=== PATIENT | male | born 1985 | race African-American/Black ===

== ENCOUNTER 2023-11-15 11:08 | Emergency (ER) | payer OTHER, SELFPAY ==
[2023-11-15 11:18] VITALS: BP 149/94; PULSE 93; RESP 18; TEMP 36.4; O2SAT 100; BMI 33.7
--- NOTE | 2023-11-15 11:18 | ED_ITS ---
HPI - Nausea/Vomiting/Diarrhea General Time Seen by Provider: 11:18 Date Seen: 11/15/23 Chief complaint: Nausea/Vomiting Stated complaint: Vomitting, diarrhea, fever, yellow eyes Time Seen by Provider: 11/15/23 11:13 Source: patient, RN notes reviewed and old records reviewed Mode of arrival: ambulatory Limitations: no limitations History of Present Illness HPI Narrative: 38-year-old male who presents today with nausea, vomiting, cough, shortness of breath, diarrhea. This been going on about a week, generally says he feels better but still is having some nausea and vomiting. Denies chest pain, abdominal pain, blood in the stools. Also notes that he has had a sore throat, subjective fever couple days ago but not today. No known ill contacts. Spouse thinks his eyes look yellow. Related Data Previous Rx's ?Medication ?Instructions ?Recorded albuterol sulfate 90 mcg/actuation 2 puff inhalation Q4H PRN 11/15/23 aerosol inhaler shortness of breath or wheezing #8.5 grams ondansetron 4 mg disintegrating 4 mg PO Q6H PRN nausea and 11/15/23 tablet vomiting #20 tabs Allergies Allergy/AdvReac Type Severity Reaction Status Date / Time cats Allergy Mild sneezing Uncoded 11/15/23 11:24 Exam Narrative: Exam Narrative: General: Well-developed and well-nourished, no acute distress Head: Atraumatic and normocephalic Eyes: Pupils are equal reactive, extraocular motions intact, conjunctiva clear ENT: External nose and ears are normal, posterior pharynx without erythema or exudate Neck: No midline cervical tenderness, full spontaneous range of motion the neck, trachea midline, no adenopathy Heart: Regular rate and rhythm no murmurs or thrills Lungs: Expiratory wheezes worse on the right, trace crackles on the right Abdomen: Soft, nontender, nondistended with active bowel sounds Musculoskeletal: No tenderness, deformity, or edema Neurologic: Awake, alert, and oriented x3, no gross focal neurologic deficits, cranial nerves intact as tested Psych: Mood and affect are appropriate Skin: No rashes Const: Vital Signs, click to edit/add: Vital Signs - 24 hr 11/15/23 11:18 11/15/23 13:00 11/15/23 13:08 Temperature 97.6 F Pulse Rate [Pulse Oximeter] 93 99 Respiratory Rate 18 20 20 Blood Pressure [Ri ght Upper Arm] 149/94 H 140/99 H Pulse Oximetry 100 95 Oxygen Delivery Me thod Room Air Room Air Room Air Course Course ED Course: Patient seen examined, reviewed align [employer] and [email or web address] charting systems, most recent visit was May 2021 for possible COVID infection. Patient presents today with nausea, vomiting, diarrhea, cough, hoarse voice, and subjective fever going on for about a week. Generally is feeling better but still is having difficulty keeping any food down. On exam, vital is stable, he does have some wheezes on the right as well some crackles, this likely represents a bronchitis but cannot exclude pneumonia. Spouse also think patient's eyes look yellow although I do not note any scleral icterus. Labs ordered along with chest x- ray, fluids, and Zofran. Patient with poor access to affordable healthcare, smokes marijuana regularly Reevaluation(s) Time of Reevaluation #1: 12:47 Reevaluation #1: Labs ordered and independently interpreted by me with mild leukocytosis, normal basic metabolic panel, normal hepatic panel. Chest x-ray ordered independently interpreted by me negative for acute findings. Lipase is normal. Time of Reevaluation #2: 13:03 Reevaluation #2: Respiratory panel is negative for acute findings, anticipate discharge. Vital Signs Vital signs: Initial Vital Signs Temperature 97.6 F 11/15/23 11:18 Temperature Source Temporal Artery Scan 11/15/23 11:18 Pulse Rate 93 11/15/23 11:18 Respiratory Rate 18 11/15/23 11:18 Blood Pressure 149/94 H 11/15/23 11:18 Blood Pressure Mean 112 H 11/15/23 11:18 Blood Pressure Position Sitting 11/15/23 11:18 Pulse Oximetry 100 11/15/23 11:18 Oxygen Delivery Method Room Air 11/15/23 11:18 Vital Signs Temperature 97.6 F 11/15/23 11:18 Pulse Rate 93 11/15/23 11:18 Respiratory Rate 18 11/15/23 11:18 Blood Pressure 149/94 H 11/15/23 11:18 Pulse Oximetry 100 11/15/23 11:18 Oxygen Delivery Method Room Air 11/15/23 11:18 Temperature 97.6 F 11/15/23 11:18 Pulse Rate 99 11/15/23 13:08 Respiratory Rate 20 11/15/23 13:08 Blood Pressure 140/99 H 11/15/23 13:00 Pulse Oximetry 95 11/15/23 13:08 Oxygen Delivery Method Room Air 11/15/23 13:08 Medications Administered Medications: Discontinued Medications Generic Name Dose Route Start Last Admin Trade Name Alejandro PRN Reason Stop Dose Admin Albuterol/Ipratropium 1 neb 11/15/23 11:40 11/15/23 12:12 Iprat-Albut 0.5-2.5 Mg/3 Ml Neb IH 11/15/23 11:41 1 neb ONCE ONE Administration Sodium Chloride 1,000 mls @ 1,000 mls/hr 11/15/23 11:45 11/15/23 12:13 0.9 % Sodium Chloride 1000 Ml IV 11/15/23 12:44 1,000 mls/hr .Q1H JAIR Administration Ondansetron HCl 4 mg 11/15/23 11:40 11/15/23 12:12 Ondansetron 2 Mg/Ml Inj IVP 11/15/23 11:41 4 mg ONCE ONE Administration MDM - Nausea/Vomiting/Diarrhea Lab Data Labs: Lab Results 11/15/23 Range/Units 12:06 WBC 12.95 H (4.50-11.00) K/uL RBC 5.89 (4.30-5.90) m/uL Hgb 16.2 (13.5-17.5) gm/dL Hct 49.0 (37.0-53.0) % MCV 83 (80-100) fL MCH 28 (26-34) pg MCHC 33 (32-36) gm/dL RDW Coeff of Boogie 12.7 (11.5-15.5) % Plt Count 236 (140-440) K/uL Neut % (Auto) 61.1 (42.0-72.0) % Lymph % (Auto) 23.1 (20-44) % Sierra % (Auto) 14.8 H (0.0-11.0) % Eos % (Auto) 0.3 (0.0-7.0) % Baso % (Auto) 0.5 (0.0-3.0) % Neut # (Auto) 7.90 H (1.7-7.0) K/uL Lymph # (Auto) 3.00 H (0.90-2.90) K/uL Sierra # (Auto) 1.90 H (0.00-0.90) K/UL Eos # (Auto) 0.00 (0.00-0.50) K/uL Baso # (Auto) 0.10 (0.00-0.30) K/uL Abs Immat Gran (auto) 0.00 (0.00-0.30) K/uL Imm/Tot Granulo (auto) 0.2 % Sodium 139 (135-149) mmol/L Potassium 3.8 (3.6-5.1) mmol/L Chloride 101 (96-114) mmol/L Carbon Dioxide 21 (20-32) mmol/L Anion Gap 17 H (7-15) mEq/L BUN 15 (5-24) mg/dL Creatinine 1.4 (0.5-1.5) mg/dL Estimated Creat Clear 72.24 Estimated GFR 66 ml/min Glucose 120 H (60-115) mg/dL Calcium 9.8 (8.4-10.6) mg/dL Magnesium 2.4 (1.5-2.6) mg/dL Total Bilirubin 1.0 (0.1-1.5) mg/dL Direct Bilirubin 0.4 (0.0-0.5) mg/dL AST 28 (12-35) U/L ALT 16 (4-50) U/L Alkaline Phosphatase 98 (40-150) U/L Total Protein 9.8 H (6.0-8.3) g/dL Albumin 5.3 H (3.3-5.0) g/dL Lipase 36 (23-300) U/L SARS-CoV-2 (PCR) Negative SARS-CoV-2 (Negative) Influenza Type A (PCR) Negative PCR FLU A (Negative) Influenza Type B (PCR) Negative PCR FLU B (Negative) RSV (PCR) Negative PCR RSV (Negative) Discharge Plan Discharge Clinical Impression: Acute viral syndrome Patient Disposition: Home, Self-Care Condition: Stable Instructions: Viral Syndrome (ED) Additional Instructions: Take Zofran as needed for nausea vomiting You may take [id number] Imodium as needed for diarrhea Follow-up with primary care in 1 week as needed Discharge Diet: Regular Prescriptions: New albuterol sulfate 90 mcg/actuation HFA aerosol inhaler 2 puff inhalation Q4H PRN (Reason: shortness of breath or wheezing) Qty: 8.5 0RF ondansetron 4 mg tablet,disintegrating 4 mg PO Q6H PRN (Reason: nausea and vomiting) Qty: 20 0RF Follow Up/Referrals: Provider,Not a Local [Primary Care Provider] - Stand Alone Forms: [facility] Info Instructions
--- NOTE | 2023-11-15 11:40 | CRLHL7_ITS ---
For Patients: As a result of the Cures Act, medical imaging exams and procedure reports are released immediately into your electronic medical record. You may view this report before your referring provider. If you have questions, please contact your health care provider. Indication: Fever, cough Technique: PA and lateral views of the chest. Comparison: None. Findings: Normal cardiomediastinal silhouette. No focal consolidation, pleural effusions, or visualized pneumothorax. Impression: No acute cardiopulmonary disease. Dictated by Timoteo Lala MD @ 11/15/2023 1:14:41 PM (Electronically Signed)
[2023-11-15] MEDS: ONDANSETRON 2 MG/ML inj 4 MG IVP (12:12)
[2023-11-15] MEDS: IPRAT-ALBUT 0.5-2.5 MG/3 ML NEB 1 NEB IH (12:12)
[2023-11-15] MEDS: 0.9 % SODIUM CHLORIDE 1000 ml 1,000 ML IV (12:13)
[2023-11-15 12:25] LABS: Basophils Percent Auto 0.5 % (0.0-3.0); Eosinophils Percent Auto 0.3 % (0.0-7.0); Hemoglobin* 16.2 gm/dL (13.5-17.5); Immature Granulocytes Pct Auto 0.2 %; Lymphocytes Percent Auto 23.1 % (20-44); Mean Corpuscular HGB Conc 33 gm/dL (32-36); Mean Corpuscular Hemoglobin 28 pg (26-34); Mean Corpuscular Volume 83 fL (80-100); Monocytes Percent Auto 14.8 % (0.0-11.0); Neutrophils Percent Auto 61.1 % (42.0-72.0); Platelet Count* 236 K/uL (140-440); RDW Coefficient of Variation % 12.7 % (11.5-15.5); Red Blood Count 5.89 m/uL (4.30-5.90); White Blood Count* 12.95 K/uL (4.50-11.00)
[2023-11-15 12:27] LABS: Slide Review Reflex No
[2023-11-15 12:30] LABS: Albumin* 5.3 g/dL (3.3-5.0); Chloride* 101 mmol/L (96-114)
[2023-11-15 12:31] LABS: Sodium* 139 mmol/L (135-149)
[2023-11-15 12:33] LABS: Alkaline Phosphatase* 98 U/L (40-150); Anion Gap 17 mEq/L (7-15); Aspartate Amino Transferase* 28 U/L (12-35); Bilirubin Direct* 0.4 mg/dL (0.0-0.5); Blood Urea Nitrogen* 15 mg/dL (5-24); Carbon Dioxide* 21 mmol/L (20-32); Creatinine* 1.4 mg/dL (0.5-1.5); Est. Creatinine Clearance* 72.24; Estimated Glomerular Filt Rate 66 ml/min; Total Protein* 9.8 g/dL (6.0-8.3)
[2023-11-15 12:34] LABS: Alanine Aminotransferase* 16 U/L (4-50); Calcium* 9.8 mg/dL (8.4-10.6); Glucose* 120 mg/dL (60-115); Lipase* 36 U/L (23-300); Magnesium* 2.4 mg/dL (1.5-2.6)
[2023-11-15 12:37] LABS: Potassium* 3.8 mmol/L (3.6-5.1)
[2023-11-15 12:50] LABS: PCR FLU A Negative PCR FLU A (Negative); PCR FLU B Negative PCR FLU B (Negative); PCR RSV Negative PCR RSV (Negative); SARS PCR* Negative SARS-CoV-2 (Negative)
[2023-11-15 13:00] VITALS: BP 140/99; RESP 20
[2023-11-15 13:08] VITALS: PULSE 99; RESP 20; O2SAT 95
== END 2023-11-15 13:35 | disposition home or self-care (01) ==
PROVIDERS: Emergency Provider Family Medicine
DX: B34.9 Viral infection, unspecified (principal)
CPT/HCPCS: 36415; 71046; 80048; 80076; 83690; 83735; 85025; 87631; 94640; 96374; 99282; 99283; 99284; J2405; J7030